=== PATIENT | male | born 1965 ===

== ENCOUNTER 2017-07-07 10:57 | Outpatient (CLI) | payer OTHER ==
--- NOTE | 2017-07-07 11:38 | Ultrasound Report ---
Sonogram of palpable area right breast: Findings: No cystic or solid masses identified. Impression: Essentially negative sonogram
== END 2017-07-07 10:58 | disposition home or self-care (01) ==
LOC: US 10:57
PROVIDERS: ATTEND Family Medicine
DX: N63 Unspecified lump in breast (principal)